=== PATIENT | male | born 1955 | race Caucasian/White ===

== ENCOUNTER 2022-05-03 03:08 | Emergency (ER) | payer OTHER ==
[~2022-05-03] VITALS: Ht 185.4 cm; Wt 102.1 kg
[2022-05-03] MEDS ORDERED: TOPROL XL25 MG PO (05:10)
--- NOTE | 2022-05-03 07:35 | EKG ---
[facility] [address] [place] [address] Signed Sinus rhythm with 1st degree AV block Left axis deviation Right bundle branch block Abnormal ECG No previous ECGs available Confirmed by PRAVIN CORONEL MD ([id number] on 05/03/2022 7:35:25 AM Electronically Signed By: PRAVIN CORONEL MD 05/03/22 0735 PATIENT NAME: ARLEEN YATES Electrocardiogram DATE OF : 59 PHYSICIAN: PRAVIN CORONEL MD REPORT #: [id number] REPORT IS CONFIDENTIAL AND NOT TO BE RELEASED WITHOUT AUTHORIZATION
--- NOTE | 2022-05-03 07:35 | EKG ---
[facility] [address] [place], [place] [address] Signed Sinus tachycardia with frequent premature ventricular complexes Right bundle branch block Left anterior fascicular block Bifascicular block Abnormal ECG No previous ECGs available Confirmed by PRAVIN CORONEL MD ([id number] on 05/03/2022 7:35:16 AM Electronically Signed By: PRAVIN CORONEL MD 05/03/22 0735 PATIENT NAME: ARLEEN YATES Electrocardiogram DATE OF : 59 PHYSICIAN: PRAVIN CORONEL MD REPORT #: [id number] REPORT IS CONFIDENTIAL AND NOT TO BE RELEASED WITHOUT AUTHORIZATION
== END 2022-05-03 06:36 | disposition home or self-care (01) ==
LOC: ED 03:08
DX: B34.9 Viral infection, unspecified (principal); R00.0 Tachycardia, unspecified; H01.00B Unspecified blepharitis left eye, upper and lower eyelids; H01.00A Unspecified blepharitis right eye, upper and lower eyelids; Z20.822 Contact with and (suspected) exposure to COVID-19
CPT/HCPCS: 36415; 71045; 80053; 81001; 83036; 83735; 84439; 84443; 84481; 84484; 85025; 87502; 93005; 93010; 99285-25; G0480; J7030; U0003